=== PATIENT | female | born 1935 | race Caucasian/White ===

== ENCOUNTER 2022-02-27 07:13 | Outpatient (CLI) | payer MEDICARE, SELFPAY ==
--- NOTE | 2022-02-27 08:00 | CRLHL7_ITS ---
For Patients: As a result of the 21st Century Cures Act, medical imaging exams and procedure reports are released immediately into your electronic medical record. You may view this report before your referring provider. If you have questions, please contact your health care provider. Indication: LEFT SIDE ABDOMINAL PAIN R/O DIVERTICULITIS Technique: Postcontrast CT abdomen and pelvis. Oral water. 68 cc Isovue 370 intravenous contrast. Please note that all CT scans at this facility use dose modulation, iterative reconstruction, and/or weight-based dosing when appropriate to reduce radiation dose to as low as reasonably achievable. Comparison: None Findings: Pulmonary nodules in both lung bases measuring up to 1 centimeter. No pleural effusion. There is a large hypodense pancreatic head/body mass measuring 4.3 x 3.7 cm. Pancreatic ductal dilation is noted in the pancreatic tail measuring up to 5 millimeters. Numerous necrotic lymph nodes are present inferior to the pancreas measuring up to 8 millimeters along with ill-defined stranding and a trace amount of fluid. This mass encases the superior mesenteric vein with associated thrombus within the SMV near the confluence. The portal vein remains patent as does the splenic vein. The IVC is diminutive suggesting dehydration. The adrenal glands are normal. No hydronephrosis. Vascular calcifications. No aneurysm. Indeterminate low-density lesion within the posterior right hepatic lobe measuring 1.3 x 1.0 cm, series 2, image 33. Probable hemangioma within the right hepatic lobe measuring 7 millimeters series 2, image 19. Indeterminate focus of decreased attenuation centrally within the liver measuring 5 millimeters, series 2, image 21. Spleen is not enlarged. Mild pelvic free fluid is present. The bladder is normal. Uterus appears absent. Sigmoid diverticulosis. No diverticulitis. No bowel obstruction. Low-density lymph node within the right pelvic sidewall measuring 1.3 cm, series 2, image 79. Small nodular density located within the anterior greater omentum measuring 6 millimeters, series 2, image 46. No fracture. 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 Metastatic pulmonary nodules in the visualized lung bases and suspicious lesion within the posterior segment of the liver. Additional suspicious nodular focus anterior greater omentum and necrotic lymph node within the right pelvic sidewall. Please note that all CT scans at this facility use dose modulation, iterative reconstruction, and/or weight-based dosing when appropriate to reduce radiation dose to as low as reasonably achievable. Dictated by Leo Hernandez MD @ 02/27/2022 9:22:18 AM (Electronically Signed)
== END 2022-02-27 07:14 | disposition home or self-care (01) ==
LOC: CT 07:13
PROVIDERS: PCP Emergency Medicine; Visit Provider Emergency Medicine
DX: R10.12 Left upper quadrant pain (principal); C25.9 Malignant neoplasm of pancreas, unspecified; R91.8 Other nonspecific abnormal finding of lung field
CPT/HCPCS: 74177; Q9967

== ENCOUNTER 2022-03-07 08:04 | Outpatient (CLI) | payer MEDICARE, SELFPAY ==
[2022-03-07 08:46] LABS: Creatinine* 0.6 mg/dL (0.5-1.5); Estimated Glomerular Filt Rate 88 ml/min
--- NOTE | 2022-03-07 09:00 | CRLHL7_ITS ---
For Patients: As a result of the Century Cures Act, medical imaging exams and procedure reports are released immediately into your electronic medical record. You may view this report before your referring provider. If you have questions, please contact your health care provider. Indication: Pancreatic mass Technique: Post contrast CT chest. 75 cc Isovue 370 intravenous contrast. Please note that all CT scans at this facility use dose modulation, iterative reconstruction, and/or weight-based dosing when appropriate to reduce radiation dose to as low as reasonably achievable. Comparison: CT abdomen February 27, 2022 Findings: Multiple bilateral pulmonary nodules are present which measure up to 1 cm on the right and 9 millimeters on the left. No pleural effusion or pneumothorax. Upper limits normal mediastinal and bilateral hilar lymph nodes. Normal axillary lymph nodes. Breast tissue appears normal. No infiltrate or edema. No effusion or pneumothorax. No intrinsic osseous lesion or fracture. The pancreatic mass is not included on this examination. Mildly prominent retroperitoneal lymph nodes partially visualized in the upper abdomen. Impression: Multiple bilateral pulmonary nodules measuring up to 1 cm likely representing metastatic disease. Please note that all CT scans at this facility use dose modulation, iterative reconstruction, and/or weight-based dosing when appropriate to reduce radiation dose to as low as reasonably achievable. Dictated by Leo Hernandez MD @ 03/07/2022 1:12:48 PM (Electronically Signed)
== END 2022-03-07 08:05 | disposition home or self-care (01) ==
LOC: CT 08:05
PROVIDERS: PCP Emergency Medicine; Visit Provider Emergency Medicine
DX: C25.9 Malignant neoplasm of pancreas, unspecified (principal); R91.8 Other nonspecific abnormal finding of lung field
CPT/HCPCS: 36415; 71260; 82565; Q9967

== ENCOUNTER 2022-03-14 14:29 | Emergency (ER) | payer MEDICARE, SELFPAY ==
[2022-03-14 14:45] VITALS: BP 134/80; PULSE 86; RESP 18; TEMP 36.6; O2SAT 96; BMI 21.7
--- NOTE | 2022-03-14 15:35 | ED_ITS ---
HPI - General Adult General Time Seen by Provider: 15:35 Date Seen: 03/14/22 Chief complaint: Constipation Stated complaint: [facility] Pt Constipated Time Seen by Provider: 03/14/22 15:35 Source: patient, family ( is present) and RN notes reviewed Mode of arrival: ambulatory Limitations: no limitations History of Present Illness HPI narrative: This 87-year-old female coming in with constipation. She has been taking oxycodone and was started on this on March 04. She has a pancreatic mass/pancreatic cancer. Her abdominal pain is about the same as it has been but she is feeling more bloated. Appetite is diminished. She has had no nausea or vomiting. She has not had a stool in 10 days. She was taking MiraLax daily. Today she did take 1 dose of Dulcolax. She is scheduled to see Oncology on Thursday [facility]. She does have the pill bottle for the oxycodone and it is empty she was given 30 pills on the 04 of March. She states there is a refill at the pharmacy for her. MD complaint: Constipation Onset (ago): day(s) Related Data Home Medications Medication Instructions Recorded Confirmed albuterol sulfate 90 mcg/actuation 2 inh INHALATION Q6H PRN 02/20/22 02/20/22 breath activated powder inhaler calcium carbonate 600 mg-vitamin cap PO 02/20/22 02/20/22 D3 12.5 mcg (500 unit) capsule (Calcium 600 with Vitamin D3) cholecalciferol (vitamin D3) 10 10 mcg PO QDAY 02/20/22 02/20/22 mcg (400 unit) capsule hydrochlorothiazide 12.5 mg capsule 12.5 mg PO QDAY 02/20/22 02/20/22 simvastatin 10 mg tablet 10 mg PO QPM 02/20/22 02/20/22 zoledronic acid 5 mg/100 mL in IV 02/20/22 02/20/22 mannitol 5 %-water intravenous piggybck (Reclast) Previous Rx's Medication Instructions Recorded amlodipine 5 mg tablet 5 mg PO QDAY #90 tab 02/26/22 enoxaparin 60 mg/0.6 mL 60 mg (0.6 mL) SUBCUT Q12H #0.6 ml 02/27/22 subcutaneous syringe oxycodone 5 mg tablet 2.5 - 5 mg PO Q4H PRN #30 tab 03/14/22 Allergies Allergy/AdvReac Type Severity Reaction Status Date / Time No Known Drug Allergies Allergy Verified 03/07/22 09:23 Review of Systems Status of ROS: Reports: 6 or more systems reviewed and unremarkable except as noted in History and below [facility] Medical History Hypertension Superior mesenteric vein thrombosis Social History Smoking Status: Never smoker Do you use any of these nicotine containing products: None How often do you have a drink containing alcohol: 2-4 times a month How many standard drinks containing alcohol do you have on a typical day: 3 or 4 How often do you have six or more drinks on one occasion: Never AUDIT-C Alcohol total score: 3 Non-prescribed substance use: denies use Exam Const: Vital Signs, click to edit/add: Vital Signs - 24 hr 03/14/22 14:45 Temperature 97.8 F Pulse Rate [Right Pulse Oximeter] 86 Respiratory Rate 18 Blood Pressure [Ri ght Upper Arm] 134/80 Pulse Oximetry 96 Documenting provider has reviewed patient's vital signs: yes Common normals: no apparent distress, average body habitus, oriented x3, no limi tations, healthy appearing and alert General appearance: cooperative, comfortable and well kempt Nutritional appearance: thin HENMT: Common normals: normocephalic, head/scalp atraumatic, hearing grossly normal bilaterally and external ears normal Head and scalp: normocephalic and atraumatic External ear: external ears normal Eye: Common normals: PERRL, EOMs intact bilaterally, conjunctivae normal and no scleral icterus Conjunctiva: conjunctiva(e) normal Pupil: PERRL Neck & C-Spine: Common normals: full ROM, no lymphadenopathy, supple, no JVD and thyroid normal Thyroid: thyroid normal Resp: Common normals: normal respiratory effort, no retractions, no use of accessory muscles and clear to auscultation bilaterally Auscultation: clear to auscultation bilaterally Cardio: Common normals: no JVD, regular rate, regular rhythm (Occasional ectopy heard), S1 normal heart sound, S2 normal heart sound, no gallops, no clicks and no murmurs Rate: regular rate Rhythm: regular rhythm (Occasional ectopy heard) Heart sounds: S1 normal and S2 normal GI: Common normals: soft to palpation Inspection: abdominal distension (Appears mildly distended) Auscultation: normoactive bowel sounds Palpation: soft and tender Details: epigastric Extremity: Common normals: normal to inspection, full ROM, normal capillary refill, no joint enlargement, no clubbing, cyanosis or edema, no calf tenderness and no pedal edema Neuro: Common normals: oriented x3 Sensorium/orientation: alert Gait (neuro): normal gait Psych: Appearance: well kempt Course Course Hospital Course: Patient is new to narcotics and is obviously having constipation secondary to narcotic usage. She does need the pain medicine for her abdominal pain for her pancreatic cancer. We will do a flat and upright to get an idea of the stool burden. Clinically by her history she is not seeming obstructed. We will confirm this with abdominal films. I have ordered an Enemeez to start with. When she is back and I can see the flattened upright, will see if there is any benefit for rectal exam and manual disimpaction. Reevaluation(s) Reevaluation #1: Patient had some results with the Enemeez. She states she is feeling better. Reviewed a bowel regimen with her. She is going to need to be on this and titrate to effect. I did review her images and it seems the majority of the sto ol is higher up in the colon. She would like to go home and I think that this is is quite reasonable. Time: 17:20 Vital Signs Vital signs: Initial Vital Signs Temperature 97.8 F 03/14/22 14:45 Temperature Source Temporal Artery Scan 03/14/22 14:45 Pulse Rate 86 03/14/22 14:45 Respiratory Rate 18 03/14/22 14:45 Blood Pressure 134/80 03/14/22 14:45 Blood Pressure Mean 98 03/14/22 14:45 Blood Pressure Position Sitting 03/14/22 14:45 Pulse Oximetry 96 03/14/22 14:45 Oxygen Delivery Method 03/14/22 14:45 Vital Signs Temperature 97.8 F 03/14/22 14:45 Pulse Rate 86 03/14/22 14:45 Respiratory Rate 18 03/14/22 14:45 Blood Pressure 134/80 07/22/22 14:45 Pulse Oximetry 96 03/14/22 14:45 Temperature 97.8 F 03/14/22 14:45 Pulse Rate 86 03/14/22 14:45 Respiratory Rate 18 03/14/22 14:45 Blood Pressure 134/80 03/14/22 14:45 Pulse Oximetry 96 03/14/22 14:45 Medical Decision Making Imaging Data Abdominal x-ray: Attestation: I have reviewed the pertinent imaging results. Radiologist's impression: Patient: CHIKIS JAIME Facility:?[facility] Patient ID:?[id number] Site Patient ID:?[id number]. Site :?[id number] Study:?XRay Abdomen 2 VIEW-03/14/2022 3:58:53 PM Ordering Physician:Raman Taylor Final Report: INDICATION: Constipation. COMPARISON: CT of the abdomen and pelvis 02/27/2022. TECHNIQUE: Abdomen, 2 views. FINDINGS: Nonobstructive bowel gas pattern. Moderate amount of stool throughout the colon. No pneumatosis or free air. Pelvic phleboliths. The lung bases are clear. Degenerative changes of the lower lumbar spine. IMPRESSION: 1. Nonobstructive bowel gas pattern. 2. Moderate amount of stool. Dictated by Verito Jane MD @ 03/14/2022 4:44:47 PM (Electronic Signature) Discharge Plan Discharge Clinical Impression: Constipation Patient Disposition: Home, Self-Care Condition: Stable Instructions: Constipation (ED) Additional Instructions: Stay on the MiraLax as you have been taking per bottle directions. Recommend senna S1 pill twice a day, can increase to 2 pills twice a day if needed if still having difficulty with constipation in 2-3 days. Tomorrow, I do want you to get a bottle of magnesium citrate and drink this bottle over 2-4 hours. This will help work from cleaning out above. Should you develop severe abdominal pain, have vomiting, develops fever, do need to seek re-evaluation. Good luck with your oncology appointment this coming Thursday. Also, recommend staying on clear liquids for the next day or so and tell your bowels are moving better. Activity Level: Activity as Tolerated Prescriptions: No Action albuterol sulfate 90 mcg/actuation aerosol powdr breath activated 2 inh inhalation Q6H PRN0RF hydrochlorothiazide 12.5 mg capsule 12.5 mg PO QDAY 0RF simvastatin 10 mg tablet 10 mg PO QPM 0RF zoledronic [id number] [Reclast] 5 mg/100 mL piggyback IV 0RF cholecalciferol (vitamin D3) 10 mcg (400 unit) capsule 10 mcg PO QDAY 0RF calcium carbonate-vitamin D3 [Calcium 600 with Vitamin D3] 600 mg-12.5 mcg (500 unit) capsule PO 0RF enoxaparin 60 mg/0.6 mL syringe 60 mg subcut Q12H Qty: 0.6 3RF Rx Instructions: dispense 60 syringe amlodipine 5 mg tablet 5 mg PO QDAY Qty: 90 3RF oxycodone 5 mg tablet 2.5 - 5 mg PO Q4H PRN (Reason: pain) Qty: 30 0RF Follow Up/Referrals: Irma Mina MD [Primary Care Provider] - Stand Alone Forms: [facility] Info Instructions
--- NOTE | 2022-03-14 15:45 | CRLHL7_ITS ---
For Patients: As a result of the Century Cures Act, medical imaging exams and procedure reports are released immediately into your electronic medical record. You may view this report before your referring provider. If you have questions, please contact your health care provider. INDICATION: Constipation. COMPARISON: CT of the abdomen and pelvis 02/27/2022. TECHNIQUE: Abdomen, 2 views. FINDINGS: Nonobstructive bowel gas pattern. Moderate amount of stool throughout the colon. No pneumatosis or free air. Pelvic phleboliths. The lung bases are clear. Degenerative changes of the lower lumbar spine. IMPRESSION: 1. Nonobstructive bowel gas pattern. 2. Moderate amount of stool. Dictated by Verito Jane MD @ 03/14/2022 4:44:47 PM (Electronically Signed)
[2022-03-14] MEDS: DOCUSATE SODIUM/BENZOCAINE 5 ML ENEMA PR (16:14)
== END 2022-03-14 17:45 | disposition home or self-care (01) ==
PROVIDERS: Emergency Provider Family Medicine; PCP Emergency Medicine
DX: K59.00 Constipation, unspecified (principal)
CPT/HCPCS: 74019; 99283; 99284; A9270

== ENCOUNTER 2022-03-17 08:00 | Outpatient (RCR) | payer MEDICARE, SELFPAY | END 2022-03-23 23:59 | disposition home or self-care (01) | LOC: CCIC 08:00 | PROVIDERS: PCP Emergency Medicine; Visit Provider Internal Medicine Medical Oncology | DX: C25.9 Malignant neoplasm of pancreas, unspecified (principal); K86.89 Other specified diseases of pancreas; K59.00 Constipation, unspecified; K55.069 Acute infarction of intestine, part and extent unspecified | CPT/HCPCS: 99202; 99205 ==

== ENCOUNTER 2022-05-02 07:58 | Outpatient (CLI) | payer MEDICARE, SELFPAY ==
--- NOTE | 2022-05-02 08:00 | CRLHL7_ITS ---
For Patients: As a result of the Century Cures Act, medical imaging exams and procedure reports are released immediately into your electronic medical record. You may view this report before your referring provider. If you have questions, please contact your health care provider. Indication: Pancreatic cancer Technique: Postcontrast CT chest, abdomen and pelvis. 58 cc Isovue 370 intravenous contrast. Please note that all CT scans at this facility use dose modulation, iterative reconstruction, and/or weight-based dosing when appropriate to reduce radiation dose to as low as reasonably achievable. Comparison: 03/07/2022, 02/27/2022 Findings: In the chest, small bilateral pleural effusions are now present. Innumerable pulmonary nodules are present bilaterally which have increased in number since the prior study. These nodules measure up to 1 cm. No pneumothorax. Small colloid nodules in thyroid. No axillary, mediastinal or hilar adenopathy. No fracture. In the abdomen, there is a new solid partially exophytic hypodense mass arising from the posterior liver measuring 2.1 cm, 2/123. Other subtle hypoechoic lesions are present elsewhere throughout the liver, the largest measures approximately 3.5 cm. Intra-abdominal ascites is similar. Spleen is normal in size. No gastric outlet obstruction. Thickening of the adrenal glands. No solid renal mass or hydronephrosis. Large necrotic pancreatic mass is similar in size and morphology measuring approximately 5.5 cm. Adjacent mildly prominent retroperitoneal lymph nodes are similar. The splenic artery is densely calcified. A clot is now present within the portal vein confluence, 2/137, measuring 1 cm. The splenic vein is occluded with collateral vessels present, as before. No bowel obstruction. In the pelvis, intrapelvic ascites is similar. 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 No pelvic mass. Bladder normal. No fracture. 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 Clot now extends into the portal venous confluence. Progression of metastatic disease within the chest with increased number of ill-defined pulmonary nodules measuring up to 1 cm. New metastatic lesions within the liver measuring up to 3.5 cm. Small pleural effusions are now present with bilateral areas of atelectasis. Please note that all CT scans at this facility use dose modulation, iterative reconstruction, and/or weight-based dosing when appropriate to reduce radiation dose to as low as reasonably achievable. Dictated by Leo Hernandez MD @ 05/02/2022 2:23:42 PM (Electronically Signed)
== END 2022-05-02 07:59 | disposition home or self-care (01) ==
PROVIDERS: PCP Emergency Medicine; Visit Provider Nurse Practitioner Family
DX: C25.9 Malignant neoplasm of pancreas, unspecified (principal); C34.90 Malignant neoplasm of unspecified part of unspecified bronchus or lung; C78.7 Secondary malignant neoplasm of liver and intrahepatic bile duct; J90 Pleural effusion, not elsewhere classified
CPT/HCPCS: 71260; 74177; Q9967

== ENCOUNTER 2022-05-05 07:33 | Outpatient (RCR) | payer MEDICARE, SELFPAY ==
--- NOTE | 2022-03-26 09:58 | ONC.NURNOTE ---
Addendum entered by Danni Yarbrough RN 03/26/22 10:10: Rhonda requested appt to start chemotherapy appts made Original Note: Extern returned call to Rhonda today regarding decision about pursuing chemotherapy Rhonda, and son were on the phone with questions Extern addressed questions about gemzar reviewed most likely side effects of gemzar patient reports ongoing pain continues to take 2.5 mg oxycodone every 4 hrs ATC with adequate relief most of the time constipation has been ongoing with large BM yesterday after taking Senna 2 tabs BID with miralax and Ducolax instructed to continue with 2 senna BID and miralax, may increase or decrease senna prn
--- NOTE | 2022-04-01 14:37 | URNOTE ---
REceived request for prior auth for Gemcitabine ([id number]). Per [facility] Injectable Drug Authorizatin list, Gemcitabine does not require authorization
[2022-04-02 08:39] LABS: Basophils Absolute Auto 0.01 K/uL (0.00-0.30); Basophils Percent Auto 0.1 % (0.0-3.0); Eosinophils Absolute Auto 0.07 K/uL (0.00-0.50); Eosinophils Percent Auto 0.9 % (0.0-7.0); Hematocrit 43.4 % (33.0-51.0); Hemoglobin* 14.5 gm/dL (12.0-16.0); Immature Granulocytes Abs Auto 0.01 K/uL (0.00-0.30); Lymphocytes Percent Auto 8.8 % (20-44); Mean Corpuscular HGB Conc 33 gm/dL (32-36); Mean Corpuscular Hemoglobin 31 pg (26-34); Mean Corpuscular Volume 94 fL (80-100); Monocytes Percent Auto 9.6 % (0.0-11.0); Neutrophils Percent Auto 80.5 % (42.0-72.0); Platelet Count* 226 K/uL (140-440); RDW Coefficient of Variation % 12.8 % (11.5-15.5); Red Blood Count 4.64 m/uL (4.00-5.20); White Blood Count* 7.91 K/uL (4.50-11.00)
[2022-04-02 08:41] LABS: Slide Review Reflex No
[2022-04-02 08:49] VITALS: BP 132/74; PULSE 103; RESP 16; TEMP 36.8; O2SAT 96
[2022-04-02 08:54] LABS: Albumin* 3.6 g/dL (3.3-5.0); Chloride* 91 mmol/L (96-114); Potassium* 4.1 mmol/L (3.6-5.1); Sodium* 130 mmol/L (135-149)
[2022-04-02 08:56] LABS: Creatinine* 0.6 mg/dL (0.5-1.5); Estimated Glomerular Filt Rate 88 ml/min
[2022-04-02 08:57] LABS: Alanine Aminotransferase* 21 U/L (4-35); Alkaline Phosphatase* 108 U/L (40-150); Aspartate Amino Transferase* 23 U/L (12-35); Bilirubin Total* 0.5 mg/dL (0.1-1.5); Blood Urea Nitrogen* 13 mg/dL (7-30); Calcium* 9.7 mg/dL (8.4-10.6); Carbon Dioxide* 34 mmol/L (20-32); Glucose* 169 mg/dL (60-115); Total Protein* 6.4 g/dL (6.0-8.3)
[2022-04-02] MEDS: dexAMETHasone 10 MG in 0.9 % SODIUM CHLORIDE 100 ml 100 ML 404 MG IVPB (10:55)
[2022-04-02] MEDS: ONDANSETRON 2 MG/ML inj 8 MG IVP (10:55)
--- NOTE | 2022-04-02 16:20 | ONC.NURNOTE ---
Addendum entered by Lucy Easton RN 04/03/22 13:52: Screen Printing Machine Operator called pt, pt states she is doing well. No concerns at this time. Taking prochlorperazine to help prevent nausea. Instructed pt to call [facility] if she has any questions or concerns. Original Note: Pt here for C1D1 Gemzar. VSS. Pt tolerated infusion well without difficulty. Screen Printing Machine Operator went over antinausea med/constipation schedule with pt and her spouse. Pt and her spouse verbalized understanding of plan of care. Screen Printing Machine Operator will call pt to follow up tomorrow.
--- NOTE | 2022-04-07 09:05 | ONC.NURNOTE ---
Post chemo follow up: Kick Boxer called to check in on nausea and constipation Re: Constipation last good BM Thursday plan to take 2 Miralax tabs this am and was instructed to add 2 senna to the miralax with instructions to take 2 additional senna this afternoon if she still has not moved bowels by this afternoon reminded of plan discussed last week to take miralax daily with senna unless watery or loose stool Re: nausea reports intermittant nausea/emesis after eating some meals- yesterday had emesis after chicken noodle soup using zofran prn before meals no significant nausea after chemo reports no appetite and that is challenging daughter is a dietitian and is advising her on food and beverage order clerk offered suggestions Re: pain reports pretty well managed on current regimen of Q 4 hour oxycodone- with constipation
[2022-04-10 08:01] LABS: Basophils Absolute Auto 0.01 K/uL (0.00-0.30); Basophils Percent Auto 0.2 % (0.0-3.0); Eosinophils Absolute Auto 0.02 K/uL (0.00-0.50); Eosinophils Percent Auto 0.4 % (0.0-7.0); Hematocrit 40.8 % (33.0-51.0); Hemoglobin* 13.8 gm/dL (12.0-16.0); Immature Granulocytes Abs Auto 0.07 K/uL (0.00-0.30); Lymphocytes Percent Auto 18.3 % (20-44); Mean Corpuscular HGB Conc 34 gm/dL (32-36); Mean Corpuscular Hemoglobin 31 pg (26-34); Mean Corpuscular Volume 92 fL (80-100); Monocytes Percent Auto 11.5 % (0.0-11.0); Neutrophils Absolute Auto 3.58 K/uL (1.7-7.0); Neutrophils Percent Auto 68.3 % (42.0-72.0); Platelet Count* 148 K/uL (140-440); RDW Coefficient of Variation % 12.6 % (11.5-15.5); Red Blood Count 4.43 m/uL (4.00-5.20); White Blood Count* 5.24 K/uL (4.50-11.00)
[2022-04-10 08:02] LABS: Slide Review Reflex No
[2022-04-10] MEDS: OXYCODONE 5 MG TABLET PO (09:33)
[2022-04-10] MEDS: dexAMETHasone 10 MG in 0.9 % SODIUM CHLORIDE 100 ml 100 ML 404 MG IVPB (09:34)
[2022-04-10] MEDS: ONDANSETRON 2 MG/ML inj 8 MG IVP (09:34)
[2022-04-10] MEDS: SODIUM CHLORIDE 0.9 % (FLUSH) 10 ML SYRINGE IVF (09:51)
[2022-04-10] MEDS: 0.9 % SODIUM CHLORIDE 250 ml IV (09:51)
[2022-04-17 08:46] LABS: Basophils Absolute Auto 0.02 K/uL (0.00-0.30); Basophils Percent Auto 0.4 % (0.0-3.0); Eosinophils Absolute Auto 0.04 K/uL (0.00-0.50); Eosinophils Percent Auto 0.8 % (0.0-7.0); Hematocrit 41.3 % (33.0-51.0); Hemoglobin* 13.7 gm/dL (12.0-16.0); Immature Granulocytes Abs Auto 0.05 K/uL (0.00-0.30); Lymphocytes Percent Auto 16.7 % (20-44); Mean Corpuscular HGB Conc 33 gm/dL (32-36); Mean Corpuscular Hemoglobin 31 pg (26-34); Mean Corpuscular Volume 93 fL (80-100); Monocytes Percent Auto 7.9 % (0.0-11.0); Neutrophils Percent Auto 73.2 % (42.0-72.0); Platelet Count* 214 K/uL (140-440); RDW Coefficient of Variation % 13.1 % (11.5-15.5); Red Blood Count 4.45 m/uL (4.00-5.20); White Blood Count* 4.96 K/uL (4.50-11.00)
[2022-04-17 08:52] VITALS: BP 112/62; PULSE 83; RESP 16; TEMP 37; O2SAT 98
[2022-04-17 09:05] LABS: Slide Review Reflex No
[2022-04-17] MEDS: dexAMETHasone 10 MG in 0.9 % SODIUM CHLORIDE 100 ml 100 ML 404 MG IVPB (09:58)
[2022-04-17] MEDS: ONDANSETRON 2 MG/ML inj 8 MG IVP (09:58)
[2022-05-01 09:05] LABS: Basophils Absolute Auto 0.02 K/uL (0.00-0.30); Basophils Percent Auto 0.3 % (0.0-3.0); Eosinophils Absolute Auto 0.01 K/uL (0.00-0.50); Eosinophils Percent Auto 0.1 % (0.0-7.0); Hematocrit 41.3 % (33.0-51.0); Hemoglobin* 13.7 gm/dL (12.0-16.0); Immature Granulocytes Abs Auto 0.05 K/uL (0.00-0.30); Lymphocytes Percent Auto 7.8 % (20-44); Mean Corpuscular HGB Conc 33 gm/dL (32-36); Mean Corpuscular Hemoglobin 31 pg (26-34); Mean Corpuscular Volume 93 fL (80-100); Monocytes Percent Auto 9.9 % (0.0-11.0); Neutrophils Percent Auto 81.2 % (42.0-72.0); Platelet Count* 463 K/uL (140-440); RDW Coefficient of Variation % 15.6 % (11.5-15.5); Red Blood Count 4.45 m/uL (4.00-5.20); White Blood Count* 7.44 K/uL (4.50-11.00)
[2022-05-01 09:15] LABS: Slide Review Reflex No
[2022-05-01 09:20] LABS: Albumin* 3.3 g/dL (3.3-5.0); Chloride* 91 mmol/L (96-114); Potassium* 3.4 mmol/L (3.6-5.1); Sodium* 130 mmol/L (135-149)
[2022-05-01 09:23] LABS: Alanine Aminotransferase* 72 U/L (4-35); Alkaline Phosphatase* 266 U/L (40-150); Aspartate Amino Transferase* 47 U/L (12-35); Bilirubin Total* 0.6 mg/dL (0.1-1.5); Blood Urea Nitrogen* 11 mg/dL (7-30); Carbon Dioxide* 32 mmol/L (20-32); Creatinine* 0.5 mg/dL (0.5-1.5); Estimated Glomerular Filt Rate 92 ml/min; Glucose* 171 mg/dL (60-115); Total Protein* 5.8 g/dL (6.0-8.3)
[2022-05-01 09:24] LABS: Calcium* 9.2 mg/dL (8.4-10.6)
== END 2022-05-27 23:59 | disposition home or self-care (01) ==
LOC: CCIC 07:33
PROVIDERS: Clinical Nurse Specialist; PCP Emergency Medicine; Visit Provider Internal Medicine Medical Oncology
DX: C25.9 Malignant neoplasm of pancreas, unspecified (principal); R18.0 Malignant ascites
CPT/HCPCS: 36415; 80053; 85025; 96376; 96413; 99212; 99213; 99214; 99215; A9270; J1100; J2405; J7050; J9201

== ENCOUNTER 2022-05-06 10:47 | Outpatient (CLI) | payer MEDICARE, SELFPAY ==
[2022-05-06 11:02] VITALS: BP 138/79; PULSE 85; RESP 14; TEMP 36.7; O2SAT 98
--- NOTE | 2022-05-07 08:15 | PM.GSCN ---
History of Present Illness Consult details Date Seen: 05/06/22 Consult date: 05/06/22 Narrative: Patient with a history of metastatic pancreatic cancer, currently on hospice. She presents today for evaluation of possible paracentesis. She has never had this procedure before. She does note some distention of her abdomen, but this has been stable over the last few weeks. She has some overall achiness of her abdomen and pain, for which she takes oxycodone every 4 hours. She denies any shortness of breath, increased abdominal pressure or change in her appetite. She is still taking Lovenox injections, with her last injection yesterday evening. 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 Social History Smoking Status: Never smoker Do you use any of these nicotine containing products: None How often do you have a drink containing alcohol: 2-4 times a month How many standard drinks containing alcohol do you have on a typical day: 3 or 4 How often do you have six or more drinks on one occasion: Never AUDIT-C Alcohol total score: 3 Non-prescribed substance use: denies use Meds Home Medications and Allergies Home Medications Medication Instructions Recorded Confirmed Type albuterol sulfate 90 mcg/actuation 2 inh inhalation Q6H PRN 02/20/22 05/05/22 History breath activated powder inhaler hydrochlorothiazide 12.5 mg capsule 12.5 mg PO QDAY 02/20/22 05/05/22 History simvastatin 10 mg tablet 10 mg PO QPM 02/20/22 05/05/22 History zoledronic acid 5 mg/100 mL in IV 02/20/22 05/05/22 History mannitol 5 %-water intravenous piggybck (Reclast) sennosides 8.6 mg capsule (senna) 8.6 mg PO QDAY 03/17/22 05/05/22 History Allergies Allergy/AdvReac Type Severity Reaction Status Date / Time No Known Drug Allergies Allergy Verified 05/02/22 09:08 Exam Narrative: Exam Narrative: General: Alert and oriented, no acute distress. Nontoxic in appearance. Respiratory: Equal breath rise bilaterally, maintained on room air. CV: Regular rhythm rate, well perfused Abdomen: Mild distention, several areas of ecchymoses on the lower abdomen correlating with recent injections. Patient does have a positive fluid shift. No guarding or rebound. Const: Vital Signs, click to edit/add: Vital Signs - 24 hr 05/06/22 11:02 Temperature 98.1 F Pulse Rate [Right Pulse Oximeter] 85 Respiratory Rate 14 Blood Pressure [Le ft Arm] 138/79 Pulse Oximetry 98 Oxygen Delivery Me thod Room Air Results Labs Labs: Labs reviewed. Hemoglobin 13.7, platelets 463. Elevated AST and ALT. Bilirubin within normal limits. No coagulation studies. 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 No evidence of significant liver disease on most recent lab work. CT imaging from April does demonstrate a moderate amount of ascites. At this time the patient is not symptomatic from her ascites. A bedside ultrasound evaluation was performed. It does show the presence of ascites, but unfortunately there was no window to perform the paracentesis. This is secondary to the amount of ascites present, which is not large enough to allow for a safe tap. The increased risk of intra-abdominal injury was reviewed with the patient, with the mutual decision to defer the procedure at this time. It was discussed that should the patient's ascites worsen or she become more symptomatic she can be evaluated again.
== END 2022-05-06 11:29 | disposition home or self-care (01) ==
LOC: US 10:48
PROVIDERS: PCP Emergency Medicine; Visit Provider Surgery
DX: C25.9 Malignant neoplasm of pancreas, unspecified (principal)
CPT/HCPCS: 76705

== ENCOUNTER 2022-05-11 19:04 | Emergency (ER) | payer MEDICARE, SELFPAY ==
[2022-05-11 19:08] VITALS: BP 133/78; PULSE 88; RESP 16; TEMP 36.6; O2SAT 94; BMI 19.6
--- NOTE | 2022-05-11 19:38 | ED_ITS ---
HPI - Abdominal Pain General Chief Complaint: Abdominal Pain Stated Complaint: Constipated Can't eat or drink Time Seen by Provider: 05/11/22 19:21 History of Present Illness HPI narrative: 87yo female patient with known h/o pancreatic cancer that presents to the ED with acute constipation from likely opioid induced constipation. The patient reports she has not been able to have a bowel movement in approximately 4 days. She reports nausea associated with the inability to have a bowel movement. In addition, due to her inability to tolerate PO intake, she has not been able to tolerate her pain medication for her pain associated with her cancer. She has recently decided to pursue a hospice consultation as her chemotherapy has failed. She plans to meet with hospice on 05/14. She denies other concerns or complaints. Related Data Home Medications Medication Instructions Recorded Confirmed albuterol sulfate 90 mcg/actuation 2 inh inhalation Q6H PRN 02/20/22 05/11/22 breath activated powder inhaler hydrochlorothiazide 12.5 mg capsule 12.5 mg PO QDAY 02/20/22 05/11/22 simvastatin 10 mg tablet 10 mg PO QPM 02/20/22 05/11/22 sennosides 8.6 mg capsule (senna) 8.6 mg PO QDAY 03/17/22 05/11/22 Previous Rx's Medication Instructions Recorded amlodipine 5 mg tablet 5 mg PO QDAY #90 tabs 02/26/22 enoxaparin 60 mg/0.6 mL 60 mg (0.6 mL) subcut Q12H #0.6 mL 02/27/22 subcutaneous syringe ondansetron HCl 8 mg tablet 8 mg PO Q8H #20 tabs 03/31/22 prochlorperazine maleate 10 mg 10 mg PO Q8H PRN nausea and 03/31/22 tablet (Compazine) vomiting #30 tabs oxycodone 5 mg capsule 5 mg PO Q4H PRN pain #50 caps 05/05/22 oxycodone 5 mg tablet 5 mg PO Q4H PRN pain #120 tabs 05/06/22 methylnaltrexone 8 mg/0.4 mL 8 mg (0.4 mL) subcut Q OTHER DAY 05/11/22 subcutaneous syringe (Relistor) #2.8 mL Allergies Allergy/AdvReac Type Severity Reaction Status Date / Time No Known Drug Allergies Allergy Verified 05/11/22 19:18 Review of Systems Const Reports: fatigue and malaise; Denies: fever or chills ENMT Reports: difficulty swallowing (due to nausea); Denies: throat pain Cardio Reports: shortness of breath with exertion; Denies: chest pain Resp Reports: shortness of breath; Denies: cough GI Reports: abdominal pain, nausea, constipation, bloating, difficulty swallowing (due to nausea), feeling full early, change in bowel habits and painful bowel movements; Denies: vomiting, heartburn, diarrhea, belching, excessive passing of gas or blood in stool Denies: painful urination, urinary frequency, urinary urgency or blood in urine Neuro Denies: headache Endo Reports: fatigue; Denies: excessive urination PFSH PFSH Medical History Hypertension 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 Social History Smoking Status: Never smoker Do you use any of these nicotine containing products: None Non-prescribed substance use: denies use Exam Const: Vital Signs, click to edit/add: Vital Signs - 24 hr 05/11/22 19:08 Temperature 97.9 F Pulse Rate [Right Pulse Oximeter] 88 Respiratory Rate 16 Blood Pressure [Le ft Upper Arm] 133/78 Pulse Oximetry 94 Oxygen Delivery Me thod Room Air Documenting provider has reviewed patient's vital signs: yes Common normals: no apparent distress, oriented x3, no limitations, alert and well nourished General appearance: cooperative, well developed, ill appearing and frail appearing; not comfortable and not in distress Orientation/consciousness: Yes awake, Yes oriented to person, Yes oriented to place and Yes oriented to time HENMT: Common normals: normocephalic and head/scalp atraumatic Head and scalp: normocephalic and atraumatic Face and sinus: normal facial exam (limited by masking) Eye: Common normals: EOMs intact bilaterally General eye: normal appearance of both eyes Resp: Common normals: normal respiratory effort, no retractions, no use of accessory muscles and clear to auscultation bilaterally Effort & inspection: able to speak in complete sentences Auscultation: clear to auscultation bilaterally Cardio: Common normals: regular rate, regular rhythm, S1 normal heart sound, S2 normal heart sound, no gallops, no clicks and no murmurs Rate: regular rate Rhythm: regular rhythm Heart sounds: S1 normal and S2 normal GI: Auscultation: hypoactive bowel sounds Palpation: firm, tender (diffusely), ascites present and other (distended) Percussion: tympanic to percussion : Common normals: no CVA tenderness Bladder/kidney exam: no CVA tenderness Back & Pelvis: Common normals: no CVA tenderness Extremity: Common normals: normal to inspection, full ROM and no clubbing, cyanosis or edema Neuro: Common normals: oriented x3, CN's II-XII intact bilaterally, moves all extremities, no focal motor deficits and no sensory deficits noted Sensorium/orientation: awake, alert, oriented to person, oriented to place and oriented to time Gait (neuro): normal gait Sensory exam: double simultaneous stimulation for sensation normal Motor exam: no movement abnormalities noted Psych: Common normals: mental status grossly normal, thought process normal and speech normal Appearance: grossly normal Attitude: calm Speech: normal speech Thought process: normal thought process Thought content: normal thought content Attention/concentration: attention grossly intact Memory/cognition: memory grossly intact Insight: insight good Judgement: judgment good Skin: Common normals: no rashes or lesions noted General skin exam: no rashes or lesions noted Course Course Hospital Course: Rhonda presented with concerns of constipation due to her medications. She is not planning additional treatments for her chronic conditions, and she plans to be placed on hospice later this week. The patient's plan for comfort cares were discussed. No additional labs or imaging was performed. Plan to assist patient with her concern involved ensuring improvement in bowel habits. Medication was ordered. Nursing staff provided enema support. The patient had significant bowel movements and reported improvement in discomfort. She will be discharged with instructions on how to use the medications going forward to assist with comfort care. Vital Signs Vital signs: Initial Vital Signs Temperature 97.9 F 05/11/22 19:08 Temperature Source Temporal Artery Scan 05/11/22 19:08 Pulse Rate 88 05/11/22 19:08 Respiratory Rate 16 05/11/22 19:08 Blood Pressure 133/78 05/11/22 19:08 Blood Pressure Mean 96 05/11/22 19:08 Pulse Oximetry 94 05/11/22 19:08 Oxygen Delivery Method 05/11/22 19:08 Vital Signs Temperature 97.9 F 05/11/22 19:08 Pulse Rate 88 05/11/22 19:08 Respiratory Rate 16 05/11/22 19:08 Blood Pressure 133/78 05/11/22 19:08 Pulse Oximetry 94 05/11/22 19:08 Oxygen Delivery Method 05/11/22 19:08 Temperature 97.9 F 05/11/22 19:08 Pulse Rate 88 05/11/22 19:08 Respiratory Rate 16 05/11/22 19:08 Blood Pressure 133/78 05/11/22 19:08 Pulse Oximetry 94 05/11/22 19:08 Oxygen Delivery Method 05/11/22 19:08 MDM - Abdominal Pain MDM Narrative Medical decision making narrative: During the evaluation of this patient consider multiple differential diagnosis considerations. The life-threatening differential diagnoses considered include: Appendicitis, aortic aneurysm, mesenteric ischemia, bowel perforation, volvulus, and bowel obstruction. Other differential diagnoses include but are not limited to: Inflammatory bowel disease, cholecystitis, pancreatitis, hepatitis, gastritis, GERD, diverticulitis, peptic ulcer disease, pyelonephr itis/UTI, renal colic/stone, diseases of the genitourinary system and reproductive system, as well as the other etiologies. Medical Records Attestation: I reviewed the patient's medical records. Lab Data Attestation: I reviewed the patient's lab results. 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 You should drink plenty of water in small sips frequently. Drink, at minimum, 50-75 oz of water every day, if possible. Use probiotic of choice-Culturelle, [employer], or Kefir-or substitute. Consider the use of a daily coconut oil supplement, apple cider vinegar supplement, and magnesium oxide. You may consider MiraLax once daily per package directions until having regular stools, if constipated. Decrease to 1/2 capful daily or every other day as needed for regular, soft bowel movements. Consider stimulant laxatives, if no success with previously discussed methods, stimulant laxative should not be used regularly to assist with bowel habits. Lastly, you may consider 4 oz of prune juice coffee mixed with 1 pat of butter warmed in the microwave to encourage bowels to move. If no bowel movement is noted within 3 days, use Relistor medication as ordered. I recommend calling primary care follow-up in the next 3-5 days for hospice consultation, as previously discussed. Activity Level: Activity as Tolerated Discharge Diet: Regular Diet Detail: As tolerated Prescriptions: New Relistor 8 mg/0.4 mL syringe 8 mg subcut Q OTHER DAY Qty: 2.8 0RF Rx Instructions: Use if no bowel movement noted in 3 days. May use one dose, every other day until bowel movement noted. No Action albuterol sulfate 90 mcg/actuation aerosol powdr breath activated 2 inh inhalation Q6H PRN hydrochlorothiazide 12.5 mg capsule 12.5 mg PO QDAY simvastatin 10 mg tablet 10 mg PO QPM Hold Instructions: Doctor's Order enoxaparin 60 mg/0.6 mL syringe 60 mg subcut Q12H Qty: 0.6 3RF Rx Instructions: dispense 60 syringe senna 8.6 mg capsule 8.6 mg PO QDAY prochlorperazine maleate [Compazine] 10 mg tablet 10 mg PO Q8H PRN (Reason: nausea and vomiting) Qty: 30 1RF Hold Instructions: Doctor's Order ondansetron HCl 8 mg tablet 8 mg PO Q8H Qty: 20 1RF oxycodone 5 mg capsule 5 mg PO Q4H PRN (Reason: pain) Qty: 50 0RF amlodipine 5 mg tablet 5 mg PO QDAY Qty: 90 3RF oxycodone 5 mg tablet 5 mg PO Q4H PRN (Reason: pain) Qty: 120 0RF Follow Up/Referrals: Irma Mina MD [Primary Care Provider] - 7 Days (As needed to arrange hospice cares or follow-up) Stand Alone Forms: [employer] Info Instructions
[2022-05-11] MEDS: 0.9 % SODIUM CHLORIDE 1000 ml 1,000 ML 500 ML IV (19:53)
[2022-05-11] MEDS: METHYLNALTREXONE BROMIDE 12 MG/0.6 ML VIAL SUBCUT (20:15)
[2022-05-11 23:41] VITALS: BP 139/71; PULSE 89; RESP 16; O2SAT 98
== END 2022-05-11 21:33 | disposition home or self-care (01) ==
PROVIDERS: Emergency Provider Family Medicine; PCP Emergency Medicine
DX: K59.03 Drug induced constipation (principal); C25.9 Malignant neoplasm of pancreas, unspecified
CPT/HCPCS: 99281; 99283; 99284; J2212; J7030